=== PATIENT | female | born 1965 | race African-American/Black ===

== ENCOUNTER 2017-12-22 13:31 | Emergency (ER) | payer MEDICAID ==
[~2017-12-22] VITALS: Ht 160 cm; Wt 77.2 kg
[2017-12-22 13:39] VITALS: BP 130/80
[2017-12-22] MEDS ORDERED: ALBUTEROL/IPRATROPIUM 2.5MG/0.5MG, 3 ML ONE (14:41)
[2017-12-22] MEDS ORDERED: ALBUTEROL/IPRATROPIUM 2.5MG/0.5MG, 3 ML NPPB ONE (15:00)
== END 2017-12-22 15:54 | disposition home or self-care (01) ==
LOC: ED 15:48
DX: J45.41 Moderate persistent asthma with (acute) exacerbation (principal); I10 Essential (primary) hypertension; N30.00 Acute cystitis without hematuria; Z76.0 Encounter for issue of repeat prescription; F17.210 Nicotine dependence, cigarettes, uncomplicated
CPT/HCPCS: 71046; 93005; 94640; 99284; J7512; J7620